=== PATIENT | female | born 1930 | race Caucasian/White ===

== ENCOUNTER 2020-12-14 16:35 | Observation (INO) | payer MEDICARE, OTHER ==
[~2020-12-14] VITALS: Ht 160 cm; Wt 83.0 kg
[2020-12-14 17:24] LABS: RED BLOOD COUNT 4.69 M/UL (4.00-5.10); WHITE BLOOD COUNT 11.2 K/UL (4.5-11.0)
[2020-12-14 17:36] LABS: BUN/CREATININE RATIO 26 (0-10)
[2020-12-14] MEDS ORDERED: TYLOPHEN500 MG PO (22:16)
[2020-12-14] MEDS ORDERED: ALOE VESTA 43% TOP (22:18)
[2020-12-14] MEDS ORDERED: ARTIFICIAL TEAR15 M6 EYEBOTH (22:19)
[2020-12-14] MEDS ORDERED: LAXATIVE SUPPOS10 MG PR (22:21)
[2020-12-14] MEDS ORDERED: BUDESONIDE0.5 MG/2 M INH (22:22)
[2020-12-14] MEDS ORDERED: PEPCID40 MG PO (22:23)
[2020-12-14] MEDS ORDERED: SURFAK 240 MG240 MG PO (22:23)
[2020-12-14] MEDS ORDERED: LASIX TAB 20 MG20 MG PO (22:24)
[2020-12-14] MEDS ORDERED: ALLEGRA ALLERG180 MG PO (22:24)
[2020-12-14] MEDS ORDERED: NEURONTIN600 MG PO (22:25)
[2020-12-14] MEDS ORDERED: NITROSTAT0.4 MG SL (22:27)
[2020-12-14] MEDS ORDERED: HYDROCHLOROTHIA25 MG PO (22:43)
[2020-12-14] MEDS ORDERED: IRBESARTAN150 MG PO (22:44)
[2020-12-14] MEDS ORDERED: IPRATROPIU0.2 MG/1 M INH (22:44)
[2020-12-14] MEDS ORDERED: LOPRESSOR 25 MG25 MG PO (22:44)
[2020-12-14] MEDS ORDERED: POTASSIUM CHLO10 ME2 PO (22:44)
[2020-12-15 03:19] LABS: HEMOGLOBIN 13.7 gm/dl (12.3-15.3); RED BLOOD COUNT 4.68 M/UL (4.00-5.10)
[2020-12-15] MEDS ORDERED: ACETAMINOPHEN500 MG PO (14:17)
[2020-12-15] MEDS ORDERED: LO-DOSE ASPIRIN81 MG PO (14:28)
--- NOTE | 2020-12-15 15:44 | NUR ---
REPORT CALLED TO ELVIN HAYDEN AT [facility] AT THIS TIME.
[2021-03-23] MEDS ORDERED: PROTONIX20 MG PO (09:04)
[2021-03-23] MEDS ORDERED: SODIUM CHLORIDE1 G1 PO (09:04)
[2021-03-23] MEDS ORDERED: LASIX TAB 20 MG20 MG PO (09:04)
[2021-03-23] MEDS ORDERED: LOVENOX40 MG/0.4 SQ (09:21)
== END 2020-12-15 17:39 ==
LOC: ER1 16:35 → M/S 19:09 → CDU 19:09 → M/S 22:28
PROVIDERS: Preventive Medicine Occupational Medicine; ADMIT Internal Medicine
DX: S22.41XA Multiple fractures of ribs, right side, initial encounter for closed fracture (principal); I48.91 Unspecified atrial fibrillation; I10 Essential (primary) hypertension; E11.9 Type 2 diabetes mellitus without complications; E55.9 Vitamin D deficiency, unspecified; J44.9 Chronic obstructive pulmonary disease, unspecified; M06.9 Rheumatoid arthritis, unspecified; K21.9 Gastro-esophageal reflux disease without esophagitis; D64.9 Anemia, unspecified; H04.123 Dry eye syndrome of bilateral lacrimal glands; K59.00 Constipation, unspecified; E66.9 Obesity, unspecified; Z68.32 Body mass index [BMI] 32.0-32.9, adult; Z91.81 History of falling; Z20.822 Contact with and (suspected) exposure to COVID-19; Z88.5 Allergy status to narcotic agent; Z88.1 Allergy status to other antibiotic agents; Z88.8 Allergy status to other drugs, medicaments and biological substances; Z79.899 Other long term (current) drug therapy; Z66 Do not resuscitate; W19.XXXA Unspecified fall, initial encounter; Y92.128 Other place in nursing home as the place of occurrence of the external cause
CPT/HCPCS: 36415; 70450; 71045; 71100; 73502; 80053; 81001; 82550; 82553; 83690; 83874; 83880; 84439; 84443; 84484; 85025; 85027; 85610; 85652; 85730; 86140; 87086; 93005; 96372; 96374; 96375; 97161; 97166; 99284; G0378; J1650; J7030; U0002

== ENCOUNTER 2021-03-21 04:46 | Inpatient (IN) | payer MEDICARE, OTHER ==
[~2021-03-21] VITALS: Ht 142.2 cm; Wt 79.4 kg
[~2021-03-21 04:46] MED LIST: ACETAMINOPHEN500 MG PO; ALLEGRA ALLERG180 MG PO; ALOE VESTA 43% TOP; ARTIFICIAL TEAR15 M6 EYEBOTH; BUDESONIDE0.5 MG/2 M INH; HYDROCHLOROTHIA25 MG PO; IPRATROPIU0.2 MG/1 M INH; IRBESARTAN150 MG PO; LASIX TAB 20 MG20 MG PO; LAXATIVE SUPPOS10 MG PR; LO-DOSE ASPIRIN81 MG PO; LOPRESSOR 25 MG25 MG PO; NEURONTIN600 MG PO; NITROSTAT0.4 MG SL; PEPCID40 MG PO; POTASSIUM CHLO10 ME2 PO; SURFAK 240 MG240 MG PO; TYLOPHEN500 MG PO
[2021-03-21 05:58] LABS: HEMOGLOBIN 13.1 gm/dl (12.3-15.3); RED BLOOD COUNT 4.4 M/UL (4.00-5.10)
[2021-03-21 06:15] LABS: BUN/CREATININE RATIO 28 (0-10)
[2021-03-21 09:50] LABS: BUN/CREATININE RATIO 26 (0-10)
[2021-03-21] MEDS ORDERED: TYLENOL EXTRA500 MG PO (11:17)
[2021-03-21] MEDS ORDERED: VITAMIN D325 MCG PO (11:18)
[2021-03-21 16:39] LABS: BUN/CREATININE RATIO 24 (0-10)
[2021-03-21 21:08] LABS: BUN/CREATININE RATIO 23 (0-10)
[2021-03-22 03:38] LABS: HEMOGLOBIN 13.2 gm/dl (12.3-15.3); RED BLOOD COUNT 4.38 M/UL (4.00-5.10); WHITE BLOOD COUNT 9.8 K/UL (4.5-11.0)
[2021-03-22 03:55] LABS: BUN/CREATININE RATIO 24 (0-10)
[2021-03-22 10:40] LABS: BUN/CREATININE RATIO 25 (0-10)
[2021-03-22 16:38] LABS: BUN/CREATININE RATIO 25 (0-10)
[2021-03-22 21:44] LABS: BUN/CREATININE RATIO 23 (0-10)
[2021-03-23 03:47] LABS: HEMOGLOBIN 12.3 gm/dl (12.3-15.3); RED BLOOD COUNT 4.15 M/UL (4.00-5.10); WHITE BLOOD COUNT 9.6 K/UL (4.5-11.0)
[2021-03-23 04:05] LABS: BUN/CREATININE RATIO 26 (0-10)
[2021-03-23] MEDS ORDERED: PROTONIX20 MG PO (09:04)
[2021-03-23] MEDS ORDERED: SODIUM CHLORIDE1 G1 PO (09:04)
[2021-03-23] MEDS ORDERED: LASIX TAB 20 MG20 MG PO (09:04)
[2021-03-23] MEDS ORDERED: LOVENOX40 MG/0.4 SQ (09:21)
== END 2021-03-23 13:55 | DRG 644 ==
LOC: ER1 04:46 → CDU 09:21 → M/S 09:21
PROVIDERS: Emergency Medicine; Internal Medicine; Physician Assistant; ADMIT Internal Medicine
DX: E22.2 Syndrome of inappropriate secretion of antidiuretic hormone (principal); S22.069A Unspecified fracture of T7-T8 vertebra, initial encounter for closed fracture; S32.10XA Unspecified fracture of sacrum, initial encounter for closed fracture; Z66 Do not resuscitate; Z20.822 Contact with and (suspected) exposure to COVID-19; S32.059A Unspecified fracture of fifth lumbar vertebra, initial encounter for closed fracture; S32.049A Unspecified fracture of fourth lumbar vertebra, initial encounter for closed fracture; S32.592A Other specified fracture of left pubis, initial encounter for closed fracture; S32.591A Other specified fracture of right pubis, initial encounter for closed fracture; S22.060A Wedge compression fracture of T7-T8 vertebra, initial encounter for closed fracture; S22.31XA Fracture of one rib, right side, initial encounter for closed fracture; I48.20 Chronic atrial fibrillation, unspecified; W18.30XA Fall on same level, unspecified, initial encounter; E87.6 Hypokalemia; M48.07 Spinal stenosis, lumbosacral region; T50.2X5A Adverse effect of carbonic-anhydrase inhibitors, benzothiadiazides and other diuretics, initial encounter; J44.9 Chronic obstructive pulmonary disease, unspecified; E11.9 Type 2 diabetes mellitus without complications; M06.9 Rheumatoid arthritis, unspecified; K21.9 Gastro-esophageal reflux disease without esophagitis; R29.6 Repeated falls; Z90.710 Acquired absence of both cervix and uterus; Z79.4 Long term (current) use of insulin; Z88.6 Allergy status to analgesic agent; Z88.0 Allergy status to penicillin; Z88.2 Allergy status to sulfonamides; Z88.8 Allergy status to other drugs, medicaments and biological substances; Z82.49 Family history of ischemic heart disease and other diseases of the circulatory system; Z79.82 Long term (current) use of aspirin; Z88.5 Allergy status to narcotic agent; Z87.891 Personal history of nicotine dependence
CPT/HCPCS: 36415; 51702; 70450; 71045; 72125; 72128; 72131; 72170; 72192; 73030; 80048; 80053; 82436; 82570; 83036; 83735; 83935; 84133; 84300; 85025; 85027; 93005; 94640; 94760; 97110; 97161; 97166; 97530; 97535; 99285; G0378; J7040; U0002

== ENCOUNTER 2021-06-30 08:55 | Emergency (ER) | payer MEDICARE, OTHER ==
[~2021-06-30 08:55] MED LIST changes: +LOVENOX40 MG/0.4 SQ; +PROTONIX20 MG PO; +SODIUM CHLORIDE1 G1 PO; +TYLENOL EXTRA500 MG PO; +VITAMIN D325 MCG PO
[2021-06-30 09:22] LABS: HEMOGLOBIN 14.4 gm/dl (12.3-15.3); RED BLOOD COUNT 4.76 M/UL (4.00-5.10); WHITE BLOOD COUNT 9.4 K/UL (4.5-11.0)
[2021-06-30 09:50] LABS: BUN/CREATININE RATIO 22 (0-10)
== END 2021-06-30 13:56 | disposition short-term general hospital (02) ==
LOC: ER1 08:55
PROVIDERS: Physician Assistant
DX: I63.9 Cerebral infarction, unspecified (principal); R29.714 NIHSS score 14; E11.9 Type 2 diabetes mellitus without complications; I48.91 Unspecified atrial fibrillation; I10 Essential (primary) hypertension; Z20.822 Contact with and (suspected) exposure to COVID-19
CPT/HCPCS: 36600; 51702; 70450; 70496; 70498; 71045; 80053; 81001; 82550; 82553; 82803; 82962; 83605; 83615; 83690; 83735; 83874; 83880; 84484; 85025; 85610; 85730; 87040; 87086; 93005; 99285; J2997; Q9967; U0002

== ENCOUNTER 2021-09-01 08:23 | Inpatient (IN) | payer MEDICARE, OTHER ==
[~2021-09-01] VITALS: Ht 160 cm; Wt 74.8 kg
[~2021-09-01 08:23] MED LIST changes: -LOPRESSOR 25 MG25 MG PO; +TOPROL XL50 MG PO
[2021-09-01 09:44] LABS: HEMOGLOBIN 11.9 gm/dl (12.3-15.3); RED BLOOD COUNT 4.18 M/UL (4.00-5.10); WHITE BLOOD COUNT 10.5 K/UL (4.5-11.0)
[2021-09-01 10:26] LABS: BUN/CREATININE RATIO 30 (0-10)
[2021-09-01] MEDS ORDERED: PROTONIX 40 MG40 M1 PO (14:11)
[2021-09-01] MEDS ORDERED: PROAIR HFA8.5 GM INH (14:14)
[2021-09-01] MEDS ORDERED: ELIQUIS5 MG PO (14:14)
[2021-09-01] MEDS ORDERED: ATORVASTATIN CA80 MG PO (14:14)
[2021-09-01] MEDS ORDERED: SENNA8.6 MG PO (14:15)
[2021-09-01] MEDS ORDERED: ALOE VERA237 ML TP (14:16)
[2021-09-01] MEDS ORDERED: LACTULOSE10 GM/15 M PO (14:17)
[2021-09-01] MEDS ORDERED: VOLTAREN ARTHRI20 GM TP (14:17)
[2021-09-02 02:07] LABS: HEMOGLOBIN 12.1 gm/dl (12.3-15.3); RED BLOOD COUNT 4.06 M/UL (4.00-5.10); WHITE BLOOD COUNT 8.8 K/UL (4.5-11.0)
[2021-09-02 02:42] LABS: BUN/CREATININE RATIO 20 (0-10)
[2021-09-02 08:13] LABS: HBSAG SCREEN Negative (Negative); HEP A AB, IGM Negative (Negative); HEP B CORE AB, IGM Negative (Negative); HEP C VIRUS AB <0.1 (0.0-0.9)
[2021-09-03 05:42] LABS: HEMOGLOBIN 11.1 gm/dl (12.3-15.3); RED BLOOD COUNT 3.77 M/UL (4.00-5.10); WHITE BLOOD COUNT 9.4 K/UL (4.5-11.0)
[2021-09-03 06:19] LABS: BUN/CREATININE RATIO 13 (0-10)
[2021-09-04 09:30] LABS: HEMOGLOBIN 12.6 gm/dl (12.3-15.3); WHITE BLOOD COUNT 10.9 K/UL (4.5-11.0)
[2021-09-04 09:31] LABS: RED BLOOD COUNT 4.25 M/UL (4.00-5.10)
[2021-09-04 10:03] LABS: BUN/CREATININE RATIO 12 (0-10)
[2021-09-05 05:46] LABS: HEMOGLOBIN 11.5 gm/dl (12.3-15.3); RED BLOOD COUNT 3.93 M/UL (4.00-5.10); WHITE BLOOD COUNT 7.5 K/UL (4.5-11.0)
[2021-09-05 06:19] LABS: BUN/CREATININE RATIO 12 (0-10)
[2021-09-06 11:27] LABS: RED BLOOD COUNT 4.08 M/UL (4.00-5.10)
[2021-09-06 11:31] LABS: WHITE BLOOD COUNT 9.5 K/UL (4.5-11.0)
[2021-09-06 12:04] LABS: BUN/CREATININE RATIO 12 (0-10)
[2021-09-07 06:32] LABS: BUN/CREATININE RATIO 14 (0-10)
[2021-09-08 06:22] LABS: HEMOGLOBIN 12.2 gm/dl (12.3-15.3); RED BLOOD COUNT 4.03 M/UL (4.00-5.10); WHITE BLOOD COUNT 8.4 K/UL (4.5-11.0)
[2021-09-08 06:44] LABS: BUN/CREATININE RATIO 13 (0-10)
[2021-09-09 06:57] LABS: HEMOGLOBIN 11.7 gm/dl (12.3-15.3); RED BLOOD COUNT 3.97 M/UL (4.00-5.10); WHITE BLOOD COUNT 7.7 K/UL (4.5-11.0)
[2021-09-09 07:26] LABS: BUN/CREATININE RATIO 14 (0-10)
[2021-09-10 06:27] LABS: HEMOGLOBIN 11.1 gm/dl (12.3-15.3); RED BLOOD COUNT 3.84 M/UL (4.00-5.10)
[2021-09-10 07:05] LABS: BUN/CREATININE RATIO 13 (0-10)
[2021-09-11] MEDS ORDERED: LEVOFLOXACIN500 MG PO (15:07)
[2021-09-11] MEDS ORDERED: METOPROLOL SUC100 MG PO (15:07)
[2021-09-11] MEDS ORDERED: ASPIRIN EC325 MG PO (15:07)
[2021-09-11] MEDS ORDERED: IPRAT-ALBUT 0.5-3 ML NEB (15:07)
[2021-09-11] MEDS ORDERED: ALBUTEROL2.5 MG/3 M NEB (15:07)
--- NOTE | 2021-09-11 17:06 | NUR ---
UNABLE TO DISCHARGE PATIENT TODAY PER CASE MANAGEMENT DUE TO DISCHARGE SUMMARY AND DISCHARGE ORDER NOT RESULTING IN TIME. COVID SWAB COMPLETED FOR EARLY AM DISCHARGE ON 09/12/21.
[2021-09-12 08:04] LABS: BUN/CREATININE RATIO 13 (0-10)
[2021-09-12] MEDS ORDERED: LASIX TAB 20 MG20 MG PO (10:05)
== END 2021-09-12 12:21 | DRG 871 ==
LOC: ER1 08:23 → MED SURG 4 12:57 → CDU 12:57 → MED SURG 4 22:09
PROVIDERS: Emergency Medicine; Internal Medicine; Physician Assistant; ADMIT Internal Medicine
DX: A41.9 Sepsis, unspecified organism (principal); G93.41 Metabolic encephalopathy; J15.9 Unspecified bacterial pneumonia; I48.20 Chronic atrial fibrillation, unspecified; Z66 Do not resuscitate; Z20.822 Contact with and (suspected) exposure to COVID-19; J44.0 Chronic obstructive pulmonary disease with (acute) lower respiratory infection; B17.9 Acute viral hepatitis, unspecified; E87.2 Acidosis; I69.359 Hemiplegia and hemiparesis following cerebral infarction affecting unspecified side; R65.20 Severe sepsis without septic shock; F03.90 Unspecified dementia, unspecified severity, without behavioral disturbance, psychotic disturbance, mood disturbance, and anxiety; K57.30 Diverticulosis of large intestine without perforation or abscess without bleeding; Z96.698 Presence of other orthopedic joint implants; E11.9 Type 2 diabetes mellitus without complications; M06.9 Rheumatoid arthritis, unspecified; K21.9 Gastro-esophageal reflux disease without esophagitis; R26.89 Other abnormalities of gait and mobility; E86.1 Hypovolemia; E55.9 Vitamin D deficiency, unspecified; E87.6 Hypokalemia; R29.6 Repeated falls; M81.0 Age-related osteoporosis without current pathological fracture; Z79.82 Long term (current) use of aspirin; Z87.81 Personal history of (healed) traumatic fracture; Z91.81 History of falling; Z88.1 Allergy status to other antibiotic agents; Z88.0 Allergy status to penicillin; Z90.710 Acquired absence of both cervix and uterus; Z88.5 Allergy status to narcotic agent; Z88.2 Allergy status to sulfonamides; Z88.8 Allergy status to other drugs, medicaments and biological substances; Z87.891 Personal history of nicotine dependence; Z82.49 Family history of ischemic heart disease and other diseases of the circulatory system
CPT/HCPCS: 36415; 71045; 71046; 76705; 80048; 80053; 80061; 80074; 80076; 80202; 80307; 81001; 82550; 82553; 82607; 82728; 82746; 82962; 83036; 83540; 83550; 83605; 83690; 83735; 83874; 83880; 84132; 84484; 85025; 85027; 85610; 86140; 87040; 93005; 94640; 94664; 94760; 96374; 96375; 97110; 97110-GP-CQ; 97116; 97116-GP-CQ; 97161; 97530; 99285; J1650; J2185; J3370; J3480; J7030; J7040; J7070; J7120; U0002

== ENCOUNTER 2021-10-18 09:01 | Emergency (ER) | payer MEDICARE, OTHER ==
[~2021-10-18 09:01] MED LIST changes: +ALBUTEROL2.5 MG/3 M NEB; +ALOE VERA237 ML TP; +ASPIRIN EC325 MG PO; +ATORVASTATIN CA80 MG PO; +ELIQUIS5 MG PO; +IPRAT-ALBUT 0.5-3 ML NEB; +LACTULOSE10 GM/15 M PO; +LEVOFLOXACIN500 MG PO; +METOPROLOL SUC100 MG PO; +PROAIR HFA8.5 GM INH; +PROTONIX 40 MG40 M1 PO; +SENNA8.6 MG PO; +VOLTAREN ARTHRI20 GM TP
[2021-10-18 09:48] LABS: RED BLOOD COUNT 4.52 M/UL (4.00-5.10); WHITE BLOOD COUNT 10.9 K/UL (4.5-11.0)
[2021-10-18 10:25] LABS: BUN/CREATININE RATIO 25 (0-10)
== END 2021-10-18 10:24 ==
LOC: ER1 09:01
PROVIDERS: Emergency Medicine
DX: I67.81 Acute cerebrovascular insufficiency (principal); E78.5 Hyperlipidemia, unspecified; I10 Essential (primary) hypertension; I48.91 Unspecified atrial fibrillation; Z20.822 Contact with and (suspected) exposure to COVID-19
CPT/HCPCS: 70450; 71045; 80048; 82550; 82553; 82962; 83735; 83874; 84484; 85025; 85610; 85730; 93005; 96374; 99285; J2997; U0002